=== PATIENT | female | born 2000 | race African-American/Black ===

== ENCOUNTER 2021-12-10 13:45 | Emergency (ER) | payer OTHER, SELFPAY ==
[2021-12-10 14:15] VITALS: BP 123/66; PULSE 89; RESP 16; TEMP 36.8; O2SAT 98; BMI 23.2
[2021-12-10 15:13] LABS: PCR FLU A Negative PCR FLU A (Negative); PCR FLU B Negative PCR FLU B (Negative); PCR RSV Negative PCR RSV (Negative)
[2021-12-10 15:17] LABS: SARS PCR* Negative SARS-CoV-2 (Negative)
--- NOTE | 2021-12-10 16:53 | ED_ITS ---
HPI - General Adult General Time Seen by Provider: 16:53 Date Seen: 12/10/21 Chief complaint: Headache/Migraine Stated complaint: Headache Fever Fatigue Time Seen by Provider: 12/10/21 16:16 Source: patient Mode of arrival: ambulatory Limitations: no limitations History of Present Illness HPI narrative: Patient is a very pleasant 21-year-old female from the [facility] who attends [employer]. She has not been home for about a year. She reports several days of headache fever. She has taken a couple of COVID tested negative are negative, her COVID test here today is negative as well as influenza and RSV. She denies cough, denies dysuria frequency denies abdominal pain denies chest pain or breathing problem. She is afebrile here on presentation. She is generally quite healthy takes no home medications, has no known allergies. No leg swelling or edema no bleeding or clotting problems, no skin rashes, no nuchal rigidity. Related Data Home Medications Medication Instructions Recorded Confirmed No Known Home Medications 12/10/21 12/10/21 Allergies Allergy/AdvReac Type Severity Reaction Status Date / Time No Known Drug Allergies Allergy Verified 12/10/21 14:20 Review of Systems Status of ROS: Reports: 10 or more systems reviewed and unremarkable except as noted in History and below [facility] Social History Smoking Status: Never smoker Do you use any of these nicotine containing products: None Second hand tobacco smoke exposure: No How often do you have a drink containing alcohol: never How often do you have six or more drinks on one occasion: Never AUDIT-C Alcohol total score: 0 Non-prescribed substance use: denies use service: No Exam Narrative: Exam Narrative: Objective: In general patient apparent distress very pleasant Vital signs are unremarkable O2 sat 90% on room air HEENT is unremarkable mouth clear neck is supple lungs are clear heart rhythm regular heart murmur abdomen benign soft nontender extremities are no edema neurologic nonfocal good peripheral perfusion noted Periphery warm and dry Const: Vital Signs, click to edit/add: Vital Signs - 24 hr 12/10/21 14:15 Temperature 98.3 F Pulse Rate [Left P ulse Oximeter] 89 Respiratory Rate 16 Blood Pressure [Le ft Upper Arm] 123/66 Pulse Oximetry 98 Oxygen Delivery Me thod Room Air Course Vital Signs Vital signs: Initial Vital Signs Temperature 98.3 F 12/10/21 14:15 Temperature Source Temporal Artery Scan 12/10/21 14:15 Pulse Rate 89 12/10/21 14:15 Pulse Rhythm 12/10/21 14:15 Pulse Strength 3+ Normal 12/10/21 14:15 Respiratory Rate 16 12/10/21 14:15 Blood Pressure 123/66 12/10/21 14:15 Blood Pressure Mean 85 12/10/21 14:15 Pulse Oximetry 98 12/10/21 14:15 Oxygen Delivery Method 12/10/21 14:15 Vital Signs Temperature 98.3 F 12/10/21 14:15 Pulse Rate 89 12/10/21 14:15 Respiratory Rate 16 12/10/21 14:15 Blood Pressure 123/66 12/10/21 14:15 Pulse Oximetry 98 12/10/21 14:15 Oxygen Delivery Method 12/10/21 14:15 Temperature 98.3 F 12/10/21 14:15 Pulse Rate 89 12/10/21 14:15 Respiratory Rate 16 12/10/21 14:15 Blood Pressure 123/66 12/10/21 14:15 Pulse Oximetry 98 12/10/21 14:15 Oxygen Delivery Method 12/10/21 14:15 Medical Decision Making MDM Narrative Medical decision making narrative: Patient is a 21-year-old college student who has had a febrile illness for a couple of days at this point she is afebrile without any stigmata of significant illness. She is not hypoxic. She is negative for COVID influenza and RSV. I think at this point we can simply observe have her rest Tylenol as needed observation off school for a couple of days no redness that affect. Recheck with [facility] her local physician within the next 2-3 days. Return to ER sooner problems or concerns Lab Data Labs: Lab Results 12/10/21 Range/Units 14:20 SARS-CoV-2 (PCR) Negative SARS-CoV-2 (Negative) Influenza Type A (PCR) Negative PCR FLU A (Negative) Influenza Type B (PCR) Negative PCR FLU B (Negative) RSV (PCR) Negative PCR RSV (Negative) Discharge Plan Discharge Clinical Impression: Acute viral syndrome Patient Disposition: Home w/ Parent or Adult Condition: Stable Additional Instructions: Rest, fluids, Tylenol as needed, off school for 2 days note written to this effect, follow-up with [facility] or the primary MD the next 2-3 days for reassessment, return to ED sooner problems concerns changes. Activity Level: Light activity Discharge Diet: Regular Prescriptions: No Action No Known Home Medications Follow Up/Referrals: Provider,Not a Local [Primary Care Provider] - Stand Alone Forms: [facility] Info Instructions
== END 2021-12-10 16:55 | disposition home or self-care (01) ==
PROVIDERS: Emergency Provider Family Medicine
DX: B34.9 Viral infection, unspecified (principal)
CPT/HCPCS: 87502; 87634; 87635; 99283

== ENCOUNTER 2024-08-18 08:43 | Outpatient (CLI) | payer OTHER, SELFPAY | END 2024-08-18 08:44 | disposition home or self-care (01) | PROVIDERS: PCP Registered Nurse; Visit Provider Registered Nurse | DX: Z00.00 Encounter for general adult medical examination without abnormal findings (principal); Z22.7 Latent tuberculosis; Z83.2 Family history of diseases of the blood and blood-forming organs and certain disorders involving the immune mechanism | CPT/HCPCS: 80076; 82565; 83020; 83021; 85660 ==